=== PATIENT | female | born 1990 | race Caucasian/White ===

== ENCOUNTER → 2017-09-16 | Outpatient (CLI) | payer BC, MEDICAID ==
[~2017-09-16] MED LIST: ACHYD1T PO; DCS100C PO; DOCU100C37 PO; IBP800T PO; IBUP-1780 PO; LABE100T2 PO; LBT200T PO; OXYC-465 PO; PREN1TAB14 PO; aldomet
== END ==
LOC: LABNPT 09:17
PROVIDERS: ATTEND Obstetrics & Gynecology
DX: O14.03 Mild to moderate pre-eclampsia, third trimester (principal)
CPT/HCPCS: 82570; 84156

== ENCOUNTER → 2017-09-30 | Outpatient (CLI) | payer BC, MEDICAID ==
[2017-09-30 10:40] LABS: URINE CREATININE FOR RATIO 18 MG/DL (30-125); URINE PROTEIN FOR RATIO ONLY < 6 MG/DL (6-12)
== END ==
LOC: LABNPT 09:12
PROVIDERS: ATTEND Obstetrics & Gynecology
DX: O28.8 Other abnormal findings on antenatal screening of mother (principal)
CPT/HCPCS: 82570; 84156

== ENCOUNTER 2017-10-07 09:52 | Inpatient (IN) | payer BC, MEDICAID ==
[~2017-10-07] VITALS: Ht 170.2 cm; Wt 75.7 kg
[2017-10-07] VITALS (17 sets, daily range): BP systolic 134–179; BP diastolic 80–114
--- OUTSIDE RECORDS SUMMARY | 2017-10-07 09:56 | XMS REPORT | Continuity of Care Document ---
Author Author [facility] Organization [facility] Address Unknown Phone Unavailable Allergies Active Description Code Type Severity Reaction Onset Reported/Identified Relationship to Patient Clinical Status Yes methyldopa [id number] Drug Allergy Mild RASH 04/09/2013 Yes methyldopate HCl [id number] Drug Allergy Mild RASH 04/09/2013 Yes No Known Drug Allergies [id number] Drug Allergy Unknown N/A 03/08/2015 Medications There is no data. 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 04/11/2013 VINCE HUBER MD Ot V04.81 ND FOR PROPHYLACTIC VACCIN AND INOCULATI 04/11/2013 VINCE HUBER MD Ot V27.0 DELIVER-SINGLE LIVEBORN 03/09/2015 VINCE HUBER MD Ot 642.43 03/19/2015 VINCE HUBER MD Ot 642.41 03/19/2015 VINCE HUBER MD Ot 644.21 03/19/2015 VINCE HUBER MD Ot 651.01 03/19/2015 VINCE HUBER MD Ot 652.23 03/19/2015 VINCE HUBER MD Ot V04.81 03/19/2015 VINCE HUBER MD Ot V06.1 03/19/2015 VINCE HUBER MD Ot V27.2 03/19/2015 VINCE HUBER MD Ot V91.03 03/23/2015 VINCE HUBER MD Ot 642.43 04/05/2015 VINCE HUBER MD Ot 642.43 09/16/2017 MAYO VARGAS, VINCE Graham Ot 642.43 MILD/NOS PREECLAMP-ANTEP 09/17/2017 MAYO VARGAS, VINCE Graham Ot O14.03 MILD TO MODERATE PRE-ECLAMPSIA, THIRD TR 09/24/2017 MAYO VARGAS, VINCE Graham Ot O14.03 MILD TO MODERATE PRE-ECLAMPSIA, THIRD TR 09/24/2017 MAYO VARGAS, VINCE Graham Ot 642.43 MILD/NOS PREECLAMP-ANTEP 09/24/2017 VINCE HUBER MD Ot O14.03 MILD TO MODERATE PRE-ECLAMPSIA, THIRD TR 09/26/2017 VINCE HUBER MD Ot O14.03 MILD TO MODERATE PRE-ECLAMPSIA, THIRD TR Procedures Code Description Performed By Performed On 74.1 LOW CERVICAL 04/09/2013 Results Test Result Range Urine protein/creatinine mass ratio - 09/16/17 09:17 Urine protein measurement (mass/volume) 19 mg/dL 6-12 Urine creatinine measurement (mass/volume) 251 mg/dL 30- 125 Urine protein/creatinine mass ratio 0.08 NRG Urine protein/creatinine mass ratio - 09/30/17 09:12 Urine protein measurement (mass/volume) < mg/dL 6-12 Urine creatinine measurement (mass/volume) 18 mg/dL 30- 125 Urine protein/creatinine mass ratio TNP NRG Encounters ACCT No. Visit Date/Time Discharge Status Pt. Type Provider Facility Loc./Unit Complaint [id number] 09/30/2017 09:12:00 09/30/2017 23:59:59 CLS Outpatient VINCE HUBER MD [facility] LABT [id number] 09/16/2017 09:17:00 09/16/2017 23:59:59 CLS Outpatient VINCE HUBER MD [facility] LABNPT [id number] 03/08/2015 14:50:00 03/19/2015 17:51:00 DIS Inpatient VINCE HUBER MD [facility] LD [id number] 03/08/2015 12:03:00 03/08/2015 23:59:59 CLS Outpatient VINCE HUBER MD [facility] LABNPT MILD OR UNSPECIFIED PRE CLAMPSIA [id number] 04/09/2013 13:56:00 04/11/2013 13:25:00 DIS Inpatient VINCE HUBER MD [facility] WS ELEVATED BLOOD PRESURE [id number] 04/09/2013 10:22:00 04/09/2013 23:59:59 CLS Outpatient
[2017-10-07] MEDS ORDERED: LACTATED RINGERS 1,000 ML IV PRN (10:08)
[2017-10-07] MEDS ORDERED: METOCLOPRAMIDE INJ 10 MG/2 ML (REGLAN) IV ONE (10:15)
[2017-10-07] MEDS ORDERED: ceFAZolin 2 GM IV Premixed 50 ML IV ONE (10:15)
[2017-10-07] MEDS ORDERED: FAMOTIDINE 20MG/2ML IV (PEPCID) IV ONE (10:15)
[2017-10-07] MEDS ORDERED: CITRIC ACID/SOB CIT (BICITRA) 30 ML UDC PO ONE (10:15)
[2017-10-07] MEDS ORDERED: metroNIDAZOLE 500MG/100ML IVPB 100 ML IV ONE (10:15)
[2017-10-07] MEDS ORDERED: CATHETER FLUSH 10 ML SYR IV PRN (10:15)
[2017-10-07] MEDS: LACTATED RINGERS 1,000 ML IV PRN ×2 (10:35→12:30)
[2017-10-07 10:54] LABS: BASOPHILS % (AUTO) 0 % (0-10); EOSINOPHILS % (AUTO) 0 % (0-10); HEMATOCRIT 34 % (35-52); HEMOGLOBIN 11.8 G/DL (11.5-16.0); LYMPHOCYTES # (AUTO) 1.4 X 10^3 (1.0-4.0); LYMPHOCYTES % (AUTO) 16 % (12-44); MEAN CORPUSCULAR HEMOGLOBIN 31 PG (25-34); MEAN CORPUSCULAR HGB CONC 35 G/DL (32-36); MEAN CORPUSCULAR VOLUME 90 FL (80-99); MEAN PLATELET VOLUME 11.1 FL (7.4-10.4); MONOCYTES # (AUTO) 0.7 X 10^3 (0.0-1.0); MONOCYTES % (AUTO) 7 % (0-12); NEUTROPHILS # (AUTO) 6.8 X 10^3 (1.8-7.8); NEUTROPHILS % (AUTO) 77 % (42-75); PLATELET COUNT 235 10^3/uL (130-400); RED CELL DISTRIBUTION WIDTH 13.3 % (10.0-14.5); WHITE BLOOD COUNT 8.9 10^3/uL (4.3-11.0)
[2017-10-07 11:10] LABS: ALANINE AMINOTRANSFERASE 7 U/L (0-55); ALBUMIN 3.2 GM/DL (3.2-4.5); ALKALINE PHOSPHATASE 184 U/L (40-136); BILIRUBIN,TOTAL 0.4 MG/DL (0.1-1.0); BUN/CREATININE RATIO 11; CALCIUM 9.2 MG/DL (8.5-10.1); CARBON DIOXIDE 18 MMOL/L (21-32); CHLORIDE 109 MMOL/L (98-107); CREATININE SERUM 0.61 MG/DL (0.60-1.30); GFR ESTIMATED > 60; GLUCOSE 81 MG/DL (70-105); SODIUM 139 MMOL/L (135-145); TOTAL PROTEIN 6.3 GM/DL (6.4-8.2); URIC ACID 6.6 MG/DL (2.6-7.2)
[2017-10-07] MEDS ORDERED: METH250T PO (11:28)
[2017-10-07] MEDS ORDERED: METH500T2 PO (11:28)
[2017-10-07] MEDS ORDERED: PREN1TAB86 PO (11:29)
[2017-10-07] MEDS ORDERED: hydrALAZINE (APESOLINE) 20 MG/ML VIAL ONE (11:38)
[2017-10-07] MEDS ORDERED: MAGNESIUM SULFATE DRIP 500 ML IV ONE (11:38)
[2017-10-07] MEDS ORDERED: MAGNESIUM SULFATE DRIP 500 ML IV SCH (11:45)
[2017-10-07] MEDS ORDERED: hydrALAZINE (APESOLINE) 20 MG/ML VIAL IV PRN (11:45)
[2017-10-07] MEDS ORDERED: OXYTOCIN/NORMAL SALINE 500 ML IV SCH (11:51)
[2017-10-07] MEDS ORDERED: OXYTOCIN/NORMAL SALINE 0 ML IV ONE (11:58)
[2017-10-07] MEDS ORDERED: OXYTOCIN/NORMAL SALINE 500 ML IV ONE ×2 (11:58→13:12)
[2017-10-07] MEDS ORDERED: D5 LR IV SOLUTION 1,000 ML IV ONE (11:59)
[2017-10-07] MEDS ORDERED: MEPERIDINE (DEMEROL) INJ 100 MG/ML IM PRN (12:00)
[2017-10-07] MEDS ORDERED: PROMETHAZINE INJ 25 MG/ML (PHENERGAN) AMP IM PRN (12:00)
[2017-10-07] MEDS ORDERED: TETANUS,DIPTH,PERTUSS P/F (BOOSTRIX) 0.5 ML VIAL IM ONE (12:00)
[2017-10-07] MEDS ORDERED: ONDANSETRON 4 MG/2 ML (SDV) Z0FRAN IVP PRN (12:00)
[2017-10-07] MEDS ORDERED: MEASLES,MUMPS,RUBELLA 1 EA INJ SC ONE (12:00)
[2017-10-07] MEDS ORDERED: fentaNYL INJECTION 100 MCG/2 ML AMP ONE ×2 (12:03→12:04)
--- NOTE | 2017-10-07 12:03 | History & Physical ---
History and Physical Date Seen by Provider: Oct 07, 2017 Time Seen by Provider: 11:59 This patient is a 27-year-old white female with an EDC of 4 [phone] who presented to clinic on this date.Have blood pressures of 160/110. She was sent to labor and delivery her blood pressures have increased. Her previous 2 deliveries were at 37 weeks gestation secondary to high blood pressure as well. Her GBS culture was positive. She denies rupture membranes or bleeding. Been on Aldomet. She is diabetic and has had good blood lungs sugar control to dateShe is admitted now for repeat Allergies are none Medications are Aldomet vitamins Medical social and surgical histories are per the antepartum record HEENT exam is normal Neck is supple no lymphadenopathy no thyromegaly Abdomen is gravid soft nontender nondistended Extremities show no clubbing or cyanosis. DTRs are 3+ to 4 over 4 globally. There is some pretibial pitting edema that is increasing. Pelvic exam is deferred. monitor shows normal heart rate pattern with no contractions Laboratory Tests Test 10/07/17 10:30 Range/Units White Blood Count 8.9 4.3-11.0 10^3/uL Red Blood Count 3.80 L 4.35-5.85 10^6/uL Hemoglobin 11.8 11.5-16.0 G/DL Hematocrit 34 L 35-52 % Mean Corpuscular Volume 90 80-99 FL Mean Corpuscular Hemoglobin 31 25-34 PG Mean Corpuscular Hemoglobin Concent 35 32-36 G/DL Red Cell Distribution Width 13.3 10.0-14.5 % Platelet Count 235 130-400 10^3/uL Mean Platelet Volume 11.1 H 7.4-10.4 FL Neutrophils (%) (Auto) 77 H 42-75 % Lymphocytes (%) (Auto) 16 12-44 % Monocytes (%) (Auto) 7 0-12 % Eosinophils (%) (Auto) 0 0-10 % Basophils (%) (Auto) 0 0-10 % Neutrophils # (Auto) 6.8 1.8-7.8 X 10^3 Lymphocytes # (Auto) 1.4 1.0-4.0 X 10^3 Monocytes # (Auto) 0.7 0.0-1.0 X 10^3 Eosinophils # (Auto) 0.0 0.0-0.3 10^3/uL Basophils # (Auto) 0.0 0.0-0.1 10^3/uL Urine Protein 7 6-12 MG/DL Urine Creatinine 32 30-125 MG/DL Urine Protein/Creatinine Ratio 0.22 Sodium Level 139 135-145 MMOL/L Potassium Level 4.0 3.6-5.0 MMOL/L Chloride Level 109 H 98-107 MMOL/L Carbon Dioxide Level 18 L 21-32 MMOL/L Anion Gap 12 5-14 MMOL/L Blood Urea Nitrogen 7 7-18 MG/DL Creatinine 0.61 0.60-1.30 MG/DL Estimat Glomerular Filtration Rate > 60 BUN/Creatinine Ratio 11 Glucose Level 81 70-105 MG/DL Uric Acid 6.6 2.6-7.2 MG/DL Calcium Level 9.2 8.5-10.1 MG/DL Total Bilirubin 0.4 0.1-1.0 MG/DL Aspartate Amino Transf (AST/SGOT) 14 5-34 U/L Alanine Aminotransferase (ALT/SGPT) 7 0-55 U/L Alkaline Phosphatase 184 H 40-136 U/L Lactate Dehydrogenase 159 125-220 U/L Total Protein 6.3 L 6.4-8.2 GM/DL Albumin 3.2 3.2-4.5 GM/DL Lab work is as noted Assessment and plan term at 37 weeks gestation with previous 2 C- sections and with severe PIH. Plan is to proceed with delivery now. We will maintain the patient on magnesium post delivery until we see that she is improving as far as her blood pressures 37 week with severe PIH and with previous 2 Allergies and Home Medications Allergies Coded Allergies: No Known Drug Allergies (Unverified , 03/08/15) Home Medications Methyldopa 250 Mg Tablet, 500 MG PO AT LUNCH, (Reported) Methyldopa 500 Mg Tablet, 1,000 MG PO BID, (Reported) Vit W-Ca,Fe,FA(<1 mg) 1 Each Tablet, 1 TAB PO DAILY, (Reported) Patient Home Medication List Home Medication List Reviewed: Yes Clinical Quality Measures DVT/VTE Risk/Contraindication: Risk Factor Score Per Nursin RFS Level Per Nursing on Admit: 1=Low/No VTE PPX VINCE HUBER MD Oct 07, 2017 12:03 pm
[2017-10-07] MEDS ORDERED: KETAMINE HCL 100 MG/ML 5 ML VIAL ONE (12:07)
[2017-10-07] MEDS ORDERED: KETOROLAC 30 MG/ML VIAL ONE (12:39)
[2017-10-07] MEDS ORDERED: ONDANSETRON 4 MG/2 ML (SDV) Z0FRAN ONE (12:51)
--- NOTE | 2017-10-07 14:42 | Anesthesia-General Post-Op ---
MAC Patient Condition Mental Status/LOC: Same as Preop Cardiovascular: Satisfactory Nausea/Vomiting: Absent Respiratory: Satisfactory Pain: Controlled Complications: Absent Post Op Complications Complications None Follow Up Care/Instructions Patient Instructions None needed. Anesthesiology Discharge Order Discharge Order Patient is doing well, no complaints, stable vital signs, no apparent adverse anesthesia problems. No complications reported per nursing. LIVAN HERNANDEZ CRNA Oct 07, 2017 14:42
[2017-10-07 17:30] LABS: BASOPHILS % (AUTO) 0 % (0-10); EOSINOPHILS % (AUTO) 0 % (0-10); HEMATOCRIT 31 % (35-52); HEMOGLOBIN 10.9 G/DL (11.5-16.0); LYMPHOCYTES # (AUTO) 1.7 X 10^3 (1.0-4.0); LYMPHOCYTES % (AUTO) 15 % (12-44); MEAN CORPUSCULAR HEMOGLOBIN 31 PG (25-34); MEAN CORPUSCULAR HGB CONC 35 G/DL (32-36); MEAN CORPUSCULAR VOLUME 90 FL (80-99); MEAN PLATELET VOLUME 10.5 FL (7.4-10.4); MONOCYTES # (AUTO) 0.4 X 10^3 (0.0-1.0); MONOCYTES % (AUTO) 4 % (0-12); NEUTROPHILS # (AUTO) 9.4 X 10^3 (1.8-7.8); NEUTROPHILS % (AUTO) 81 % (42-75); PLATELET COUNT 217 10^3/uL (130-400); RED BLOOD COUNT 3.47 10^6/uL (4.35-5.85); RED CELL DISTRIBUTION WIDTH 13.1 % (10.0-14.5); WHITE BLOOD COUNT 11.5 10^3/uL (4.3-11.0)
[2017-10-07 17:49] LABS: ALANINE AMINOTRANSFERASE 7 U/L (0-55); ALBUMIN 2.8 GM/DL (3.2-4.5); ALKALINE PHOSPHATASE 156 U/L (40-136); BILIRUBIN,TOTAL 0.4 MG/DL (0.1-1.0); BUN/CREATININE RATIO 9; CALCIUM 8.2 MG/DL (8.5-10.1); CARBON DIOXIDE 18 MMOL/L (21-32); CHLORIDE 109 MMOL/L (98-107); CREATININE SERUM 0.64 MG/DL (0.60-1.30); GFR ESTIMATED > 60; GLUCOSE 148 MG/DL (70-105); POTASSIUM 3.7 MMOL/L (3.6-5.0); SODIUM 137 MMOL/L (135-145); TOTAL PROTEIN 5.4 GM/DL (6.4-8.2)
--- NOTE | 2017-10-07 17:53 | OPERATIVE REPORT ---
DATE OF SERVICE: 10/07/2017 PREOPERATIVE DIAGNOSES: Severe -induced hypertension at 37 and 1/7 weeks' gestation. The patient with two previous sections and gestational diabetes. POSTOPERATIVE DIAGNOSES: Severe -induced hypertension at 37 and 1/7 weeks' gestation. The patient with two previous sections and gestational diabetes. OPERATIVE PROCEDURE: Repeat low transverse delivery of a viable male with Apgars of 8 and 9 at 1 and 5 minutes respectively. Weight is 7 pounds 12 ounces. time of 12:39 and a cord blood pH of 7.32. OPERATIVE DESCRIPTION: With the patient in the supine position under satisfactory spinal anesthesia, she was prepped and draped in the usual fashion for abdominal surgery. Welch catheter was placed in the urinary bladder and left to dependent drainage. A repeat Pfannenstiel incision made through the skin with a scalpel at the site of the patient's previous Pfannenstiel incisional scar. The abdomen was entered in the usual manner. Bladder retractor placed into position and clean scalpel used to make a 4 cm hysterotomy incision transversely across the lower uterine segment that was extended by blunt dissection as well, releasing clear fluid on hysterotomy. A vigorous viable male infant was delivered via the uterine incision. Stats were as noted above. The infant was bulb suctioned on delivery of the head. A nuchal cord was easily released and the delivery completed. The infant bulb suctioned again as the cord was doubly clamped and cut and the passed to Dr. Rosales, the wood heel fitter machine in attendance for delivery. Cord bloods were obtained. The placenta delivered spontaneously Rendon. It was normal with a 3-vessel cord. The uterus was exteriorized and interior wiped clean with a wet laparotomy sponge. Uterine incision was closed then with a running locked suture of 2-0 Vicryl. Hemostasis was complete. The patient had previously requested risk-reducing salpingectomy had been counseled adequately and appropriately in clinic on several occasions and again prior to the procedure today, risk-reducing salpingectomy was performed by dividing the mesosalpinx on each side, ligating the proximal portion of fallopian tube at its junction with the uterus and the distal blood supply and then resecting the tube intact and sending it to pathology for permanent section. The uterus was then returned to abdominal cavity. All blood clot and debris removed from the abdominal cavity. With sponge, needle counts correct, hemostasis assured. The anterior parietal peritoneum was closed with a running suture of 2-0 Vicryl. Rectus muscles were closed with that suture as well. The rectus fascia was closed with 2-0 Vicryl, subcutaneous tissue with 2-0 Vicryl and the skin was stapled. Sponge and needle counts were correct on completion of the procedure. Estimated blood loss was around 400 mL. The patient tolerated the procedure well and was transferred to the recovery room in stable condition. The infant had been taken stable to the full term nursery under the care of nurse Siddiqui and Dr. Rosales. Job ID: [id number] DocumentID: [id number] Dictated Date: 10/07/2017 13:07:17 Courtroom Deputy Or Calendar Clerk Date: 10/07/2017 17:52:30 Dictated By: VINCE HUBER MD
[2017-10-07] MEDS: KETOROLAC 30 MG/ML VIAL IVP SCH (18:15)
[2017-10-07] MEDS: DOCUSATE SODIUM 100 MG (COLACE) CAP PO SCH (20:08)
[2017-10-07] MEDS: oxyCODONE/APAP 10/325MG (PERCOCET 10) TABLET PO PRN (20:29)
[2017-10-07] MEDS: NIFEdipine ER 30 MG (PROCARDIA XL) TAB PO SCH (20:36)
[2017-10-07] MEDS: MAGNESIUM SULFATE DRIP 500 ML IV SCH (21:49)
[2017-10-08] VITALS (13 sets, daily range): BP systolic 116–155; BP diastolic 64–100
[2017-10-08] MEDS: KETOROLAC 30 MG/ML VIAL IVP SCH ×2 (00:03→05:15)
[2017-10-08] MEDS: MAGNESIUM SULFATE DRIP 500 ML IV SCH (00:06)
[2017-10-08] MEDS: oxyCODONE/APAP 10/325MG (PERCOCET 10) TABLET PO PRN ×3 (05:08→16:36)
[2017-10-08] MEDS ORDERED: D5 LR IV SOLUTION 1,000 ML IV ONE (05:09)
[2017-10-08] MEDS ORDERED: D5 LR IV SOLUTION 1,000 ML IV SCH (05:30)
--- NOTE | 2017-10-08 08:36 | Progress Note-Standard ---
Standard Progress Note Progress Notes/Assess & Plan Date Seen by Provider: Oct 08, 2017 Time Seen by Provider: 08:34 Progress/Assessment & Plan This patient is without complaint. She is continues to be at bed rest with IV magnesium and with Welch catheter and a to her PIH. Her blood pressures have improved with oral nifedipine XL. She has good pain control. Vital Signs Date Time Temp Pulse Resp B/P (MAP) Pulse Ox O2 Delivery O2 Flow Rate FiO2 10/08/17 07:00 101 18 122/81 (95) 99 Room Air 10/08/17 06:00 101 18 150/100 (117) 99 Room Air 10/08/17 05:00 98.6 88 16 150/94 (112) 100 Room Air 10/08/17 04:00 88 16 146/94 (111) 100 Room Air 10/08/17 03:00 85 18 144/94 (111) 100 Room Air 10/08/17 02:00 97.4 10/08/17 02:00 87 18 139/87 (104) 100 Room Air 10/08/17 01:00 86 18 126/89 (101) 98 Room Air 10/08/17 00:00 91 18 116/64 (81) 100 Room Air 10/07/17 23:00 96.6 89 18 134/80 (98) 100 Room Air 10/07/17 22:00 95 18 146/86 (106) 98 Room Air 10/07/17 21:00 95 18 164/99 (120) 100 Room Air 10/07/17 21:00 98.5 10/07/17 20:40 Room Air 10/07/17 20:00 92 18 176/111 (132) 100 Room Air 10/07/17 19:00 94 18 179/113 (135) Room Air 10/07/17 17:35 98.9 92 18 151/94 (113) 10/07/17 16:00 98.1 91 20 159/102 (121) 99 Room Air 10/07/17 15:00 97.9 93 18 154/98 (116) 99 Room Air 10/07/17 14:34 98.1 93 20 150/92 (111) 99 Room Air 10/07/17 12:00 107 20 165/93 (117) Room Air 10/07/17 11:55 108 20 172/99 (123) Room Air 10/07/17 11:40 93 20 165/94 (117) Room Air 10/07/17 11:20 98 20 169/93 (118) Room Air 10/07/17 11:00 100 20 168/98 (121) Room Air 10/07/17 10:40 99 20 170/96 (120) Room Air 10/07/17 10:20 98.0 99 20 171/105 (127) Room Air I & O 10/08/17 07:00 Intake Total 3250 ml Output Total 3475 ml Balance -225 ml Blood pressures are significantly improved signs are stable The abdomen is benign. Surgical incision is clean dry and intact. Extreme show clubbing cyanosis. There is some pretibial pitting edema. There is no Homans sign. Assessment and plan is operative day number 1 status post repeat delivery due to severe PIH. She is on Procardia XL and her blood pressures have improved. We will continue that management discontinue her Welch catheter and her IV medications and fluids and observed. VINCE HUBER MD Oct 08, 2017 8:36 am
[2017-10-08] MEDS: DOCUSATE SODIUM 100 MG (COLACE) CAP PO SCH ×2 (09:32→20:26)
[2017-10-08] MEDS: NIFEdipine ER 30 MG (PROCARDIA XL) TAB PO SCH (09:33)
[2017-10-08] MEDS ORDERED: KETOROLAC 30 MG/ML VIAL ONE (13:24)
--- NOTE | 2017-10-08 14:44 | Anesthesia-Regional Post-Op ---
Regional Patient Condition Mental Status: Alert, Oriented x3 Circulation: Same as Pre-Op Headache: Absent Sensation: Full Recovery Motor Block: Absent Post Op Complications Complications None Follow Up Care/Instructions Patient Instructions None needed. Anesthesia/Patient Condition Patient is doing well, no complaints, stable vital signs, no apparent adverse anesthesia problems. No complications reported per nursing. ROBERTA CORTES CRNA Oct 08, 2017 14:44
[2017-10-08] MEDS: IBUPROFEN 800 MG (MOTRIN) TAB PO SCH (20:26)
[2017-10-09] MEDS: IBUPROFEN 800 MG (MOTRIN) TAB PO SCH ×3 (02:50→14:44)
[2017-10-09] MEDS: oxyCODONE/APAP 10/325MG (PERCOCET 10) TABLET PO PRN (02:50)
[2017-10-09 05:00] VITALS: BP 146/92
--- NOTE | 2017-10-09 08:20 | Progress Note-Standard ---
Standard Progress Note Progress Notes/Assess & Plan Date Seen by Provider: Oct 09, 2017 Time Seen by Provider: 08:18 Progress/Assessment & Plan This patient is without complaint. She is continues to be at bed rest with IV magnesium and with Welch catheter and a to her PIH. Her blood pressures have improved with oral nifedipine XL. She has good pain control. Vital Signs Date Time Temp Pulse Resp B/P (MAP) Pulse Ox O2 Delivery O2 Flow Rate FiO2 10/08/17 07:00 101 18 122/81 (95) 99 Room Air 10/08/17 06:00 101 18 150/100 (117) 99 Room Air 10/08/17 05:00 98.6 88 16 150/94 (112) 100 Room Air 10/08/17 04:00 88 16 146/94 (111) 100 Room Air 10/08/17 03:00 85 18 144/94 (111) 100 Room Air 10/08/17 02:00 97.4 10/08/17 02:00 87 18 139/87 (104) 100 Room Air 10/08/17 01:00 86 18 126/89 (101) 98 Room Air 10/08/17 00:00 91 18 116/64 (81) 100 Room Air 10/07/17 23:00 96.6 89 18 134/80 (98) 100 Room Air 10/07/17 22:00 95 18 146/86 (106) 98 Room Air 10/07/17 21:00 95 18 164/99 (120) 100 Room Air 10/07/17 21:00 98.5 10/07/17 20:40 Room Air 10/07/17 20:00 92 18 176/111 (132) 100 Room Air 10/07/17 19:00 94 18 179/113 (135) Room Air 10/07/17 17:35 98.9 92 18 151/94 (113) 10/07/17 16:00 98.1 91 20 159/102 (121) 99 Room Air 10/07/17 15:00 97.9 93 18 154/98 (116) 99 Room Air 10/07/17 14:34 98.1 93 20 150/92 (111) 99 Room Air 10/07/17 12:00 107 20 165/93 (117) Room Air 10/07/17 11:55 108 20 172/99 (123) Room Air 10/07/17 11:40 93 20 165/94 (117) Room Air 10/07/17 11:20 98 20 169/93 (118) Room Air 10/07/17 11:00 100 20 168/98 (121) Room Air 10/07/17 10:40 99 20 170/96 (120) Room Air 10/07/17 10:20 98.0 99 20 171/105 (127) Room Air I & O 10/08/17 07:00 Intake Total 3250 ml Output Total 3475 ml Balance -225 ml Blood pressures are significantly improved signs are stable The abdomen is benign. Surgical incision is clean dry and intact. Extreme show clubbing cyanosis. There is some pretibial pitting edema. There is no Homans sign. Assessment and plan is operative day number 1 status post repeat delivery due to severe PIH. She is on Procardia XL and her blood pressures have improved. We will continue that management discontinue her Welch catheter and her IV medications and fluids and observed. October 09, 2017 Patient is without complaint. She is ambulating, voiding, tolerating by mouth well, has good pain control. Patient denies chest pain, denies shortness of breath, denies headache, and denies nausea vomiting. Vital Signs Date Time Temp Pulse Resp B/P (MAP) Pulse Ox O2 Delivery O2 Flow Rate FiO2 10/09/17 05:00 98.0 103 18 146/92 (110) 99 Room Air 10/08/17 23:35 98.0 100 18 155/95 (115) 100 Room Air 10/08/17 20:26 98.6 101 18 147/91 (109) 100 Room Air 10/08/17 15:29 93 18 133/83 (100) 99 Room Air 10/08/17 12:30 98 18 136/79 (98) 100 Room Air 10/08/17 09:00 98.7 94 18 120/78 (92) 97 Room Air I & O 10/09/17 07:00 Intake Total 3100 ml Output Total 3050 ml Balance 50 ml Vital signs are stable. Patient is afebrile. Blood pressures are acceptable on the current medication. The abdomen is benign. The surgical incision is clean dry and intact. Extremities show no clubbing cyanosis. There is no Homans sign. There is some pretibial pitting edema that is normal. Assessment and plan postoperative day number 2 status post repeat delivery due to severe PIH at 37 weeks gestation. Patient is doing well and is stable on Procardia XL 30 mg a day we will continue that medication and follow- up in clinic. Final Diagnosis 37 week repeat severe PIH VINEC HUBER MD Oct 09, 2017 8:19 am
[2017-10-09] MEDS ORDERED: OXYC-465 PO (08:21)
[2017-10-09] MEDS ORDERED: DOCU100C37 PO (08:21)
[2017-10-09] MEDS ORDERED: Nifedipine PO (08:21)
[2017-10-09] MEDS ORDERED: IBUP-1780 PO (08:21)
--- NOTE | 2017-10-09 08:22 | Discharge Instructions ---
Discharge Instructions Discharge Medications New, Converted or Re-Newed RX: RX on Chart Patient Instructions Patient Instructions: as directed Return to The Hospital For: As directed Activity & Diet Discharge Diet: No Restrictions Activity as Tolerated: No Orders-Post D/C & Referrals Follow Up Appt: RTC 1 week for incision check. Call to make follow up appt. for patient in 4 weeks. Wound Care: Remove sylwia, apply benzoin and steri strips. Activity Per routine post instructions. Diet as tolerated Patient may shower or tub bathe as desired. Continue home meds VINCE HUBER MD Oct 09, 2017 8:22 am
[2017-10-09 08:30] VITALS: BP 176/103
[2017-10-09] MEDS ORDERED: TETANUS,DIPTH,PERTUSS P/F (BOOSTRIX) 0.5 ML VIAL IM ONE (08:32)
[2017-10-09] MEDS: NIFEdipine ER 30 MG (PROCARDIA XL) TAB PO SCH (08:43)
[2017-10-09] MEDS: DOCUSATE SODIUM 100 MG (COLACE) CAP PO SCH (08:44)
[2017-10-09] MEDS: SIMETHICONE 80 MG (MYLICON) CHEW PO PRN ×2 (09:04→14:44)
[2017-10-09 12:45] VITALS: BP 149/94
[2017-10-09 15:30] VITALS: BP 149/94
== END 2017-10-09 15:30 | disposition home or self-care (01) | DRG 766 ==
LOC: LDRP 09:52 → WS 15:34
PROVIDERS: ADMIT Obstetrics & Gynecology; ATTEND Obstetrics & Gynecology
PROC: 10D00Z1 Extraction of Products of Conception, Low, Open Approach (ICD-10-PCS; principal; 2017-10-07 12:13)
DX: O13.4 Gestational [pregnancy-induced] hypertension without significant proteinuria, complicating childbirth (principal); O34.211 Maternal care for low transverse scar from previous cesarean delivery; O24.429 Gestational diabetes mellitus in childbirth, unspecified control; Z3A.37 37 weeks gestation of pregnancy; Z37.0 Single live birth; Z23 Encounter for immunization
CPT/HCPCS: 36415; 80053; 82570; 83615; 84156; 84550; 85025; 86850; 86900; 86901; 90715; 94664